=== PATIENT | male | born 1980 | race American Indian/Alaskan Native ===

== ENCOUNTER 2017-03-23 04:30 | Emergency (ER) | payer OTHER ==
[2017-03-23 04:45] VITALS: RESP 16; TEMP 98
--- NOTE | 2017-03-23 04:59 | ED PDOC ---
HPI: Chest Pain Time Seen by Provider: 03/23/17 04:48 Chief Complaint (Nursing): Chest Pain Chief Complaint (Provider): chest pain History Per: Patient History/Exam Limitations: no limitations Onset/Duration Of Symptoms: Hrs Current Symptoms Are (Timing): Still Present Additional Complaint(s): 36yo male with PMHx including asthma presents to the ED with c/o atraumatic non- radiating left sided chest pain since 0230 this morning. Patient reports pain is worse with deep inspiration and touch. Denies fever, cough, n/v, SOB, leg pain, hx of DVT or PE, palpitations, drug use, smoking. Past Medical History Reviewed: Historical Data, Nursing Documentation, Vital Signs Vital Signs: Last Vital Signs Temp 98.0 F 03/23/17 04:44 Pulse 65 03/23/17 05:25 Resp 16 03/23/17 04:44 BP 147/98 H 03/23/17 04:44 Pulse Ox 98 03/23/17 05:25 - Medical History PMH: Asthma - Surgical History Surgical History: Hernia Repair (left ) - Family History Family History: States: No Known Family Hx - Social History Current smoker - smoking cessation education provided: No Drugs: Denies - Home Medications Home Medications: Ambulatory Orders Medication Instructions Recorded No Known Home Med 03/23/17 - Allergies Allergies/Adverse Reactions: Allergies Allergy/AdvReac Type Severity Reaction Status Date / Time No Known Allergies Allergy Verified 01/29/16 00:12 Review of Systems ROS Statement: Except As Marked, All Systems Reviewed And Found Negative Constitutional: Negative for: Fever Cardiovascular: Positive for: Chest Pain (left sided ). Negative for: Palpitations Respiratory: Negative for: Cough, Shortness of Breath Gastrointestinal: Negative for: Nausea, Vomiting Musculoskeletal: Negative for: Leg Pain Physical Exam - Reviewed Nursing Documentation Reviewed: Yes Vital Signs Reviewed: Yes - Physical Exam Appears: Positive for: Well, No Acute Distress Head Exam: Positive for: ATRAUMATIC, NORMAL INSPECTION, NORMOCEPHALIC Skin: Positive for: Normal Color, Warm, Dry Eye Exam: Positive for: Normal appearance, EOMI, PERRL ENT: Positive for: Normal ENT Inspection Neck: Positive for: Normal, Painless ROM, Supple Cardiovascular/Chest: Positive for: Regular Rate, Rhythm, Other (left sided anterior chest wall tenderness ). Negative for: Murmur, Tachycardia Respiratory: Positive for: Normal Breath Sounds. Negative for: Wheezing, Respiratory Distress Gastrointestinal/Abdominal: Positive for: Normal Exam, Bowel Sounds, Soft. Negative for: Tenderness Back: Positive for: Normal Inspection. Negative for: L CVA Tenderness, R CVA Tenderness Extremity: Positive for: Normal ROM. Negative for: Deformity, Swelling Neurologic/Psych: Positive for: Alert, Oriented. Negative for: Motor/Sensory Deficits - Laboratory Results Result Diagrams: 03/23/17 05:00 - ECG ECG: Positive for: Interpreted By Me, Viewed By Me ECG Rhythm: Positive for: Sinus Rhythm (NSR at 65 bpm, no ST or T wave changes ) Rate: 65 O2 Sat by Pulse Oximetry: 98 Pulse Ox Interpretation: Normal (RA) - Radiology X-Ray: Interpreted by Me (CXR) X-Ray Interpretation: No Acute Disease Medical Decision Making Medical Decision Makin: Impression: atraumatic non-radiating left sided chest pain Plan: Labs CXR EKG IVF, Aspirin 324mg PO reassess Scribe Attestation: Documented by Cresencio Maxwell acting as a scribe for Nuan Allison PA-C. Provider Scribe Attestation: All medical record entries made by the Scribe were at my direction and personally dictated by me. I have reviewed the chart and agree that the record accurately reflects my personal performance of the history, physical exam, medical decision making, and the department course for this patient. I have also personally directed, reviewed, and agree with the discharge instructions and disposition. Disposition - Clinical Impression Clinical Impression: Chest pain - Patient ED Disposition Is Patient to be Admitted: Transfer of Care (Signed out to Dr. Scott pending lab results.) - Disposition Disposition Time: 06:03 Condition: STABLE
[2017-03-23 05:09] LABS: BASO # 0.1 K/uL (0.0-0.2); BASO % 1.2 % (0.0-2.0); EOS # 0.3 K/uL (0.0-0.7); EOS % 3.6 % (0.0-4.0); HEMATOCRIT 42.4 % (35.0-51.0); LYMPH # 2.4 K/uL (1.0-4.3); LYMPH % 30.4 % (20.0-40.0); MEAN CELL VOLUME 67.9 fl (80.0-94.0); MEAN CORPUSCULAR HEMOGLOBIN 21.4 pg (27.0-31.0); MEAN CORPUSCULAR HGB CONC 31.5 g/dL (33.0-37.0); MEAN PLATELET VOLUME 8.4 fl (7.2-11.7); MONO # 0.9 K/uL (0.0-0.8); MONO % 11.1 % (0.0-10.0); NEUT # 4.3 K/uL (1.8-7.0); NEUT % 53.7 % (50.0-75.0); NRBC % 0.1 % (0.0-0.0); RED CELL DISTRIBUTION WIDTH 15.5 % (11.5-14.5)
[2017-03-23 05:16] LABS: ALKALINE PHOSPHATASE 76 U/L (38-126); ALT/SGPT 33 U/L (21-72); AST/SGOT 42 U/L (17-59); BILIRUBIN,TOTAL 0.8 mg/dl (0.2-1.3); BLOOD UREA NITROGEN 18 mg/dl (9-20); CALCIUM 9.4 mg/dL (8.4-10.2); CARBON DIOXIDE 28 mmol/L (22-30); CHLORIDE 105 mmol/L (98-107); GFR AFRICAN-AMERICAN > 60; GLUCOSE,RANDOM 101 mg/dL (75-110); POTASSIUM 4.3 MMOL/L (3.6-5.0); SODIUM 145 mmol/l (132-148); TOTAL PROTEIN 7.7 G/DL (6.3-8.2)
--- NOTE | 2017-03-23 06:07 | ED PDOC ---
- Laboratory Results Result Diagrams: 03/23/17 05:00 03/23/17 05:00 - ECG O2 Sat by Pulse Oximetry: 98 Medical Decision Making Medical Decision Making: Patient s/o from Piedad Allison PA-C at 0600 pending labs and re-eval. 0637: Labs reviewed, WNL. Patient stable for d/c. Advised to f/u w/ PCP in 1-2 days for cardiology referral for workup and return to ED with any worsening or concerning symptoms. Scribe Attestation: Documented by Cresencio Maxwell acting as a scribe for John Scott MD. Provider Scribe Attestation: All medical record entries made by the Scribe were at my direction and personally dictated by me. I have reviewed the chart and agree that the record accurately reflects my personal performance of the history, physical exam, medical decision making, and the department course for this patient. I have also personally directed, reviewed, and agree with the discharge instructions and disposition. Disposition Counseled Patient/Family Regarding: Studies Performed, Diagnosis, Need For Followup - Clinical Impression Clinical Impression: Chest pain - POA Present On Arrival: None - Disposition Referrals: Jairo Wade MD [Primary Care Provider] - Disposition: Routine/Home Disposition Time: 06:37 Condition: IMPROVED Additional Instructions: follow up with your primary doctor in 1-2 days return to the ED with any worsening or concerning symptoms Instructions: Chest Pain (ED), Thoracic Pain (ED) Forms: [facility] ED School/Work Excuse
[2017-03-23 06:59] VITALS: BP 132/84; PULSE 82
--- NOTE | 2017-03-23 09:05 | RAD ---
HISTORY: chest pain COMPARISON: 01/29/2016. TECHNIQUE: Chest PA and lateral FINDINGS: LUNGS: No active pulmonary disease. PLEURA: No significant pleural effusion identified. No pneumothorax apparent. CARDIOVASCULAR: Normal. OSSEOUS STRUCTURES: No significant abnormalities. VISUALIZED UPPER ABDOMEN: Normal. OTHER FINDINGS: None. IMPRESSION: No active disease. No significant interval change compared to the prior examination(s).
[2017-03-24 11:11] VITALS: O2SAT 98
== END 2017-03-23 06:59 | disposition home or self-care (01) ==
LOC: H.ER 04:30
DX: J45.909 Unspecified asthma, uncomplicated (principal); R07.9 Chest pain, unspecified

== ENCOUNTER 2017-12-28 03:19 | Emergency (ER) | payer OTHER ==
[2017-12-28 03:29] VITALS: BMI 42.7
[2017-12-28 03:33] VITALS: BP 143/85; PULSE 74; RESP 16; TEMP 98.6; O2SAT 100
--- NOTE | 2017-12-28 03:52 | ED PDOC ---
HPI: Back Time Seen by Provider: 12/28/17 03:47 Chief Complaint (Nursing): Back Pain Chief Complaint (Provider): back pain, left leg pain History Per: Patient Additional Complaint(s): 37 year old male presents with pain to lower back that radiates to left leg starting yesterday. Patient denies any trauma or injury. He denies any associated bowel or bladder dysfunction. Patient took Tylenol earlier and this did not help his pain. Patient rates current pain as an 8 out of 10. PMD: Dr. Jairo Sorensen Past Medical History Reviewed: Historical Data, Nursing Documentation, Vital Signs Vital Signs: Last Vital Signs Temp 98.6 F 12/28/17 03:29 Pulse 74 12/28/17 03:29 Resp 16 12/28/17 03:29 BP 143/85 12/28/17 03:29 Pulse Ox 100 12/28/17 03:29 - Medical History PMH: Asthma - Surgical History Surgical History: Hernia Repair (left inguinal) - Family History Family History: States: No Known Family Hx - Living Arrangements Living Arrangements: With Friends/Others - Social History Current smoker - smoking cessation education provided: No Alcohol: None Drugs: Denies - Home Medications Home Medications: Ambulatory Orders Medication Instructions Recorded Cyclobenzaprine [Cyclobenzaprine 10 mg PO TID PRN #20 tab 12/28/17 HCl] Naproxen [Naprosyn] 500 mg PO BID #20 tab 12/28/17 Prednisone 50 mg PO DAILY #5 tablet 12/28/17 - Allergies Allergies/Adverse Reactions: Allergies Allergy/AdvReac Type Severity Reaction Status Date / Time No Known Allergies Allergy Verified 12/28/17 03:29 Review of Systems ROS Statement: Except As Marked, All Systems Reviewed And Found Negative Genitourinary Male: Negative for: Dysuria, Frequency, Incontinence, Hematuria Musculoskeletal: Positive for: Back Pain, Leg Pain Physical Exam - Reviewed Nursing Documentation Reviewed: Yes Vital Signs Reviewed: Yes - Physical Exam Appears: Positive for: Well, Non-toxic, No Acute Distress Skin: Negative for: Rash Eye Exam: Positive for: Normal appearance Cardiovascular/Chest: Positive for: Regular Rate, Rhythm Respiratory: Positive for: Normal Breath Sounds Back: Positive for: Vertebral Tenderness (Tenderness to lower lumbar region with palpable muscle spasm), Other (Straight leg raise is positive on left leg at 30, patient is able to heel and toe walk) Neurologic/Psych: Positive for: Alert, Oriented, Gait (steady) - ECG O2 Sat by Pulse Oximetry: 100 Pulse Ox Interpretation: Normal - Other Rad L/S Spine X-ray X-Ray: Interpreted by Me, Viewed By Me X-Ray Interpretation: no fx, no dis Medical Decision Making Medical Decision Makin-year-old male with back pain and sciatica Plan: IM toradol PO flexeril PO prednisone L/S Spine x-ray Patient reports mild improvement of pain after meds given. Prescriptions provided for prednisone, Naprosyn and Flexeril. Patient was advised to follow up with orthopedist or primary doctor for further evaluation. Disposition - Clinical Impression Clinical Impression: Back pain with sciatica - Patient ED Disposition Is Patient to be Admitted: No Counseled Patient/Family Regarding: Studies Performed, Diagnosis, Need For Followup, Rx Given - Disposition Referrals: Jairo Wade MD [Primary Care Provider] - Kallie Orozco MD [Staff Provider] - Disposition: Routine/Home Disposition Time: 05:10 Condition: IMPROVED Additional Instructions: Take meds as directed. Avoid heavy lifting and rest as much as possible. Follow up with primary care doctor or with orthopedist for further evaluation. Prescriptions: Cyclobenzaprine [Cyclobenzaprine HCl] 10 mg PO TID PRN #20 tab PRN Reason: Muscle Spasm Naproxen [Naprosyn] 500 mg PO BID #20 tab Prednisone 50 mg PO DAILY #5 tablet Instructions: Back Pain (ED), Back Exercises (ED), Sciatica (ED) Forms: [employer] [facility] (S[place]ankan), [facility] ED School/Work Excuse
--- NOTE | 2017-12-28 14:37 | RAD ---
PROCEDURE: Radiographs of the Lumbar Spine. HISTORY: Back pain radiating left lower extremity. No history of trauma provided. COMPARISON: No prior. FINDINGS: BONES: Normal alignment. No listhesis. No fracture. DISC SPACES: Unremarkable. OTHER FINDINGS: None. IMPRESSION: Unremarkable radiographs of the lumbar spine. Concordant results with the preliminary interpretation rendered by the emergency department physician procedure.
== END 2017-12-28 05:17 | disposition home or self-care (01) ==
LOC: H.ER 03:19
DX: M54.32 Sciatica, left side (principal)
CPT/HCPCS: 72100; 96372; 99281; J1885

== ENCOUNTER 2018-08-27 21:28 | Emergency (ER) | payer OTHER ==
[2018-08-27 21:28] VITALS: BMI 41.9
--- NOTE | 2018-08-27 23:04 | ED PDOC ---
HPI: SOB/CHF/COPD Time Seen by Provider: 08/27/18 22:19 Chief Complaint (Nursing): Shortness Of Breath Chief Complaint (Provider): Cough, b/l leg pain History Per: Patient History/Exam Limitations: no limitations Onset/Duration Of Symptoms: Days (x3 weeks ago ) Quality: Other (Constant) Exacerbating Factor(s): Other (standing or walking around ) Associated Symptoms: Leg/Calf Pain (both lower leg pain ) Additional Complaint(s): Victor M Centeno is a 37 year old male with a past medical history of asthma, who presents to the emergency department complaining of chills and productive cough with yellow-clear phlegm onset for x1 week. Patient also reports constant bilateral lower leg pain. He was seen here x3 weeks ago and was diagnosed with Pneumonia. He took Advil with mild relief. He denies having fever, leg swelling or any other medical complaints. PMD: Dr. Jairo Wade Past Medical History Reviewed: Historical Data, Nursing Documentation, Vital Signs Vital Signs: Last Vital Signs Temp 98.4 F 08/27/18 21:58 Pulse 61 08/27/18 21:58 Resp 18 08/27/18 21:58 BP 135/86 08/27/18 21:58 Pulse Ox 100 08/27/18 21:58 - Medical History PMH: Asthma Other PMH: - Surgical History Surgical History: Hernia Repair (left inguinal) - Family History Family History: States: Unknown Family Hx - Social History Current smoker - smoking cessation education provided: No Alcohol: None Drugs: Denies - Home Medications Home Medications: Ambulatory Orders Medication Instructions Recorded Cyclobenzaprine [Cyclobenzaprine 10 mg PO TID PRN #20 tab 12/28/17 HCl] Naproxen [Naprosyn] 500 mg PO BID #20 tab 12/28/17 Prednisone 50 mg PO DAILY #5 tablet 12/28/17 Ondansetron ODT [Zofran ODT] 4 mg PO Q6 PRN #10 odt 08/05/18 levoFLOXacin [Levaquin] 750 mg PO DAILY #10 tab 08/05/18 - Allergies Allergies/Adverse Reactions: Allergies Allergy/AdvReac Type Severity Reaction Status Date / Time No Known Allergies Allergy Verified 12/28/17 03:29 Review of Systems ROS Statement: Except As Marked, All Systems Reviewed And Found Negative Constitutional: Positive for: Chills. Negative for: Fever Respiratory: Positive for: Cough, Sputum (yellow and clear phlegm) Musculoskeletal: Positive for: Leg Pain (Lower extremity pain) Physical Exam - Reviewed Nursing Documentation Reviewed: Yes Vital Signs Reviewed: Yes - Physical Exam Appears: Positive for: Well, No Acute Distress Head Exam: Positive for: ATRAUMATIC, NORMOCEPHALIC Skin: Positive for: Normal Color, Warm, Dry Eye Exam: Positive for: Normal appearance, EOMI, PERRL Neck: Positive for: Normal, Painless ROM, Supple Cardiovascular/Chest: Positive for: Regular Rate, Rhythm. Negative for: Murmur Respiratory: Positive for: Normal Breath Sounds. Negative for: Respiratory Distress (Able to speak in full sentences ) Gastrointestinal/Abdominal: Positive for: Normal Exam, Soft. Negative for: Tenderness Back: Positive for: Normal Inspection. Negative for: L CVA Tenderness, R CVA Tenderness Extremity: Positive for: Normal ROM (upper and lower extremities ). Negative for: Tenderness, Calf Tenderness, Deformity, Swelling Neurologic/Psych: Positive for: Alert, Oriented, Gait (steady ). Negative for: Motor/Sensory Deficits - Laboratory Results Result Diagrams: 08/27/18 23:15 08/27/18 23:15 - ECG O2 Sat by Pulse Oximetry: 100 (RA) Pulse Ox Interpretation: Normal - Radiology X-Ray: Interpreted by Ks X-Ray Interpretation: No Acute Disease Medical Decision Making Medical Decision Making: Time: 22:19 Initial Impression: Initial Plan: --CMP --CBC with differential --PTT --PT --CXR 2 views PA/LAT [RAD] --Duplex Lower Extremity Vein BILAT [US] Scribe Attestation: Documented by Navarro Baker & Jorge Luis Becerra, acting as a scribe for Anne Nolasco MD. Provider Scribe Attestation: All medical record entries made by the Scribe were at my direction and pe rsonally dictated by me. I have reviewed the chart and agree that the record accurately reflects my personal performance of the history, physical exam, medical decision making, and the department course for this patient. I have also personally directed, reviewed, and agree with the discharge instructions and disposition. Disposition - Disposition Forms: [employer] ([place]ayan)
[2018-08-27 23:34] LABS: INR 1.1
[2018-08-27 23:36] LABS: BASO # 0.1 K/uL (0.0-0.2); BASO % 1.2 % (0.0-2.0); EOS # 0.2 K/uL (0.0-0.7); EOS % 2.6 % (0.0-4.0); HEMOGLOBIN 13.5 g/dL (12.0-18.0); LYMPH # 2.5 K/uL (1.0-4.3); MEAN CORPUSCULAR HEMOGLOBIN 21.8 pg (27.0-31.0); MEAN CORPUSCULAR HGB CONC 32.1 g/dL (33.0-37.0); MEAN PLATELET VOLUME 8.6 fl (7.2-11.7); MONO # 0.8 K/uL (0.0-0.8); MONO % 10.2 % (0.0-10.0); NEUT # 4.2 K/uL (1.8-7.0); PARTIAL THROMBOPLASTIN TIME 36.5 Seconds (25.6-37.1); RBC 6.17 Mil/uL (4.40-5.90); RED CELL DISTRIBUTION WIDTH 15.3 % (11.5-14.5); WHITE BLOOD COUNT 7.7 K/uL (4.8-10.8)
[2018-08-27 23:40] LABS: ALT/SGPT 38 U/L (21-72); AST/SGOT 30 U/L (17-59); BLOOD UREA NITROGEN 21 mg/dl (9-20); CALCIUM 9.5 mg/dL (8.4-10.2); GFR NON-AFRICAN AMERICAN > 60
--- NOTE | 2018-08-28 02:21 | ED PDOC ---
- Laboratory Results Result Diagrams: 08/27/18 23:15 08/27/18 23:15 - ECG O2 Sat by Pulse Oximetry: 100 (RA) Pulse Ox Interpretation: Normal Medical Decision Making Medical Decision Makin Patient was signed over to me by Dr. Nolasco pending studies 200 U/S: Negative Labs reviewed: negative Patient resting very comfortably, appearing very well Informed of results, will treat for inflammatory airway process Advised patient to followup with Dr. Jairo Sorensen Patient requesting work note Disposition - Clinical Impression Clinical Impression: Cough - POA Present On Arrival: None - Disposition Referrals: Jairo Wade MD [Staff Provider] - Disposition: Routine/Home Disposition Time: 02:20 Condition: GOOD Prescriptions: Benzonatate [Tessalon Perle] 100 mg PO TID #20 capsule predniSONE [predniSONE Tab] 60 mg PO DAILY #9 tab Instructions: Cough in Adults Forms: [facility] ([place]ankan)
[2018-08-28 03:13] VITALS: BP 131/90; PULSE 88; RESP 22; TEMP 98.1; O2SAT 99
--- NOTE | 2018-08-28 09:51 | RAD ---
Date of service: 08/27/2018 HISTORY: Cough COMPARISON: Chest radiograph dated 08/05/2018 TECHNIQUE: Chest PA and lateral FINDINGS: LUNGS: No active pulmonary disease. PLEURA: No significant pleural effusion identified. No pneumothorax apparent. CARDIOVASCULAR: Normal. OSSEOUS STRUCTURES: No significant abnormalities. VISUALIZED UPPER ABDOMEN: Normal. OTHER FINDINGS: None. IMPRESSION: No active disease.
--- NOTE | 2018-08-31 10:17 | US ---
Date of service: 08/28/2018 PROCEDURE: Bilateral lower extremity venous duplex Doppler. HISTORY: Bilateral calf pain COMPARISON: None available. TECHNIQUE: Bilateral common femoral, superficial femoral, popliteal and posterior tibial veins were evaluated. Flow was assessed with color Doppler, compressibility, assessment of phasic flow and augmentation response. FINDINGS: COMMON FEMORAL VEIN: Right CFV: Unremarkable. Left CFV: Unremarkable. SUPERFICIAL FEMORAL VEIN: Right SFV: Unremarkable. Left SFV: Unremarkable. POPLITEAL VEIN: Right Popliteal: Unremarkable. Left Popliteal: Unremarkable. POSTERIOR TIBIAL VEIN: Right PTV: Unremarkable. Left PTV: Unremarkable. OTHER FINDINGS: None. IMPRESSION: No evidence of deep venous thrombosis. Concordant results (preliminary interpretation) provided by JM CEBALLOS. Procedure Completed: 01:06 Preliminary Report: Dictated and Authenticated: 01:27. Final Interpretation: 10:16
== END 2018-08-28 03:13 | disposition home or self-care (01) ==
LOC: H.ER 21:28
DX: R05 Cough (principal); R06.02 Shortness of breath; R60.0 Localized edema

== ENCOUNTER 2019-03-28 20:08 | Emergency (ER) | payer OTHER ==
[2019-03-28 20:09] VITALS: BMI 41.9
[2019-03-28 21:16] VITALS: O2SAT 99
[2019-03-28] MEDS ORDERED: Ciprofloxacin 400mg/200ml D5W 400 MG/200 ML BAG IVPB STA (22:22)
[2019-03-28] MEDS ORDERED: metroNIDAZOLE 500mg/100ml NS 100 ML IVPB STA (22:23)
[2019-03-28] MEDS ORDERED: Sodium Chloride 0.9% 1,000 ML IV STA (22:23)
--- NOTE | 2019-03-28 22:25 | ED PDOC ---
HPI: General Adult Time Seen by Provider: 03/28/19 22:24 Chief Complaint (Nursing): Abdominal Pain Chief Complaint (Provider): abdominal pain History Per: Patient (38 y/o male h/o Asthma here with intermittent abdominal pain now more persistently x 2-3 days LLQ. Feels as if pain radiates to testicles. Denies any dysuria/diarrhea/vomiting/fever. Has h/o hernia repair.) Past Medical History Reviewed: Historical Data, Nursing Documentation, Vital Signs Vital Signs: Last Vital Signs Temp 98.6 F 03/28/19 21:13 Pulse 77 03/28/19 21:13 Resp 16 03/28/19 21:13 BP 115/76 03/28/19 21:13 Pulse Ox 99 03/28/19 21:13 - Medical History PMH: Asthma - Surgical History Surgical History: Hernia Repair (left inguinal) - Family History Family History: States: Unknown Family Hx - Home Medications Home Medications: Ambulatory Orders Medication Instructions Recorded Cyclobenzaprine [Cyclobenzaprine 10 mg PO TID PRN #20 tab 12/28/17 HCl] Naproxen [Naprosyn] 500 mg PO BID #20 tab 12/28/17 Prednisone 50 mg PO DAILY #5 tablet 12/28/17 Ondansetron ODT [Zofran ODT] 4 mg PO Q6 PRN #10 odt 08/05/18 levoFLOXacin [Levaquin] 750 mg PO DAILY #10 tab 08/05/18 Benzonatate [Tessalon Perle] 100 mg PO TID #20 capsule 08/28/18 predniSONE [predniSONE Tab] 60 mg PO DAILY #9 tab 08/28/18 Ciprofloxacin HCl [Cipro] 500 mg PO BID #14 tablet 03/29/19 Metronidazole [Flagyl] 500 mg PO TID #21 tablet 03/29/19 Ondansetron ODT [Zofran ODT] 4 mg PO Q8 PRN #10 odt 03/29/19 Oxycodone HCl/Acetaminophen 1 each PO Q6 PRN #10 tablet 03/29/19 [Endocet 2.5-325 mg Tablet] - Allergies Allergies/Adverse Reactions: Allergies Allergy/AdvReac Type Severity Reaction Status Date / Time No Known Allergies Allergy Verified 03/28/19 21:13 Review of Systems ROS Statement: Except As Marked, All Systems Reviewed And Found Negative Gastrointestinal: Positive for: Abdominal Pain Physical Exam - Reviewed Nursing Documentation Reviewed: Yes Vital Signs Reviewed: Yes - Physical Exam Appears: Positive for: Well, Non-toxic, No Acute Distress Head Exam: Positive for: ATRAUMATIC, NORMAL INSPECTION, NORMOCEPHALIC Skin: Positive for: Normal Color, Warm, DRY Eye Exam: Positive for: EOMI, Normal appearance, PERRL ENT: Positive for: Normal ENT Inspection Neck: Positive for: Normal, Painless ROM Cardiovascular/Chest: Positive for: Regular Rate, Rhythm Respiratory: Positive for: CNT, Normal Breath Sounds Gastrointestinal/Abdominal: Positive for: Normal Exam, Soft Back: Positive for: Normal Inspection Extremity: Positive for: Normal ROM, Tenderness (LLQ tenderness) Neurological/Psych: Positive for: Awake, Alert, Normal Tone - Laboratory Results Result Diagrams: 03/28/19 23:05 03/28/19 23:05 - ECG O2 Sat by Pulse Oximetry: 99 - Progress ED Course And Treament: CIPRO 400 MG IV X 1 DOSE FLAGYL 500 MG IV X 1 DOSE NS 1 LITER 500 ML PER HOUR X [address] ABD/PELVIS: MILD CHANGES OF UNCOMPLICATED PROXIMAL ACUTE SIGMOID DIVERTICULITIS WITHOUT PERFORATION OR ABSCESS FORMATION. D/W PATIENT TO RETURN TO ED FOR INCREASING PAIN/FEVER/VOMITING. ADVISED F/U W ITH DR. MOULTON GI AND IF UNABLE TO DO SO SOON--WITH PMD IN 1-2 DAYS. Medical Decision Making Medical Decision Makin:01 CT abd and pelvis with contrast read and reviewed by radiologist COMMENTS: Fat containing umbilical hernia without incarceration. Mild acute diverticulitis of the proximal sigmoid colon without perforation or abscess formation. Mild fatty liver infiltration. There is no intra or extrahepatic biliary ductal dilatation. The spleen is normal. The gallbladder is within normal limits. The pancreas is of normal contour and attenuation characteristics. There is no evidence of adrenal mass. Both kidneys demonstrate prompt and equal nephrograms. The kidneys are normal in size, shape and configuration. There is no evidence of renal or ureteral mass. No renal or ureteral calculi are identified. There is no hydroureter or hydronephrosis. No evidence for appendicitis. There is no bowel wall thickening. No evidence for small or large bowel obstruction. There is no evidence of abdominal ascites or lymphadenopathy. There is no evidence of intrinsic or extrinsic bladder mass. There is no pelvic ascites or lymphadenopathy. Images of the lung bases show no evidence of pleural or parenchymal mass. There are no pleural effusions. The bony structures are free of lytic or blastic lesions. IMPRESSION: Mild changes of uncomplicated proximal acute sigmoid diverticulitis without perforation or abscess formation. Disposition - Clinical Impression Clinical Impression: Diverticulitis - Patient ED Disposition Is Patient to be Admitted: No - Disposition Referrals: Scott Moulton MD [Staff Provider] - Disposition: Routine/Home Disposition Time: 01:38 Condition: FAIR Prescriptions: Ciprofloxacin HCl [Cipro] 500 mg PO BID #14 tablet Metronidazole [Flagyl] 500 mg PO TID #21 tablet Ondansetron ODT [Zofran ODT] 4 mg PO Q8 PRN #10 odt PRN Reason: Nausea/Vomiting Oxycodone HCl/Acetaminophen [Endocet 2.5-325 mg Tablet] 1 each PO Q6 PRN #10 tablet PRN Reason: Pain, Severe (8-10) Instructions: Low Fiber Diet, Diverticulitis (DC) Forms: [facility] ED School/Work Excuse
[2019-03-28] MEDS ORDERED: Ciprofloxacin 400mg/200ml D5W 400 MG/200 ML BAG IVPB ONE (23:14)
[2019-03-28 23:23] LABS: VENOUS BLOOD GAS PCO2 63 mmHg (40-60); VENOUS BLOOD GAS PO2 16 mm/Hg (30-55); VENOUS BLOOD PH 7.29 (7.32-7.43)
[2019-03-28 23:26] LABS: BASO # 0.1 K/uL (0.0-0.2); BASO % 0.8 % (0.0-2.0); EOS # 0.2 K/uL (0.0-0.7); EOS % 2.6 % (0.0-4.0); LYMPH # 2.2 K/uL (1.0-4.3); LYMPH % 30.3 % (20.0-40.0); MEAN CELL VOLUME 69.2 fl (80.0-94.0); MEAN CORPUSCULAR HGB CONC 31.8 g/dL (33.0-37.0); MEAN PLATELET VOLUME 8.3 fl (7.2-11.7); MONO # 0.8 K/uL (0.0-0.8); MONO % 10.7 % (0.0-10.0); NEUT % 55.6 % (50.0-75.0); NRBC % 0.2 % (0.0-0.0); RBC 6.37 Mil/uL (4.40-5.90); WHITE BLOOD COUNT 7.2 K/uL (4.8-10.8)
[2019-03-28 23:30] LABS: URINE BACTERIA RARE (<OCC); URINE BILIRUBIN NEGATIVE (NEGATIVE); URINE BLOOD NEGATIVE (NEGATIVE); URINE CLARITY CLEAR (Clear); URINE COLOR YELLOW (YELLOW); URINE GLUCOSE (UA) NEG (NEGATIVE); URINE LEUKOCYTE ESTERASE NEG Leu/uL (Negative); URINE PROTEIN NEGATIVE (NEGATIVE); URINE UROBILINOGEN 0.2-1.0 mg/dL (0.2-1.0)
[2019-03-28 23:35] LABS: ALBUMIN 4.5 g/dL (3.5-5.0); BLOOD UREA NITROGEN 18 mg/dl (9-20); CALCIUM 9.6 mg/dL (8.4-10.2); GFR NON-AFRICAN AMERICAN > 60
[2019-03-28 23:36] LABS: ALB/GLOB RATIO 1.1 (1.0-2.1); ALT/SGPT 32 U/L (21-72); AST/SGOT 31 U/L (17-59); LIPASE 58 U/L (23-300)
[2019-03-28] MEDS ORDERED: Iohexol 300 100 ML IJ ONE (23:43)
[2019-03-28] MEDS ORDERED: Sodium Chloride 0.9% 50 ML IV ONE (23:44)
[2019-03-29] MEDS ORDERED: metroNIDAZOLE 500mg/100ml NS 100 ML IVPB ONE (00:38)
[2019-03-29 03:18] VITALS: BP 125/81; PULSE 82; RESP 17; TEMP 98.4
--- NOTE | 2019-03-29 11:36 | CT ---
Date of service: 03/28/2019 PROCEDURE: CT Abdomen and Pelvis with contrast HISTORY: Abdominal pain, diverticulitis suspected. COMPARISON: 08/05/2018. CT abdomen and pelvis. TECHNIQUE: Intravenous contrast dose: 90 cc Omnipaque 300. Radiation dose: Total exam DLP = 891.15 mGy-cm. This CT exam was performed using one or more of the following dose reduction techniques: Automated exposure control, adjustment of the mA and/or kV according to patient size, and/or use of iterative reconstruction technique. FINDINGS: LOWER THORAX: Unremarkable. LIVER: Hepatic steatosis. No focal masses. No intrahepatic bile duct dilatation or perihepatic ascites. GALLBLADDER AND BILE DUCTS: Unremarkable. PANCREAS: Unremarkable. No gross lesion or ductal dilatation. SPLEEN: Unremarkable. ADRENALS: Unremarkable. No mass. KIDNEYS AND URETERS: Unremarkable. No hydronephrosis. No solid mass. VASCULATURE: Unremarkable. No aortic aneurysm. No atherosclerotic calcification or mural plaque present. BOWEL: Acute inflammatory changes limited to a short segment of the sigmoid colon at the site of known diverticular disease. No free air, loculated air/fluid or drainable collection. APPENDIX: Normal appendix. PERITONEUM: Unremarkable. No free fluid. No free air. LYMPH NODES: Unremarkable. No enlarged lymph nodes. BLADDER: Unremarkable. REPRODUCTIVE: Unremarkable. BONES: No acute fracture. OTHER FINDINGS: None. IMPRESSION: Mild/acute sigmoid diverticulitis. This is uncomplicated without evidence of free, loculated air or fluid or drainable collection. Additional benign and/or incidental findings described above. Concordant results (preliminary interpretation) provided by [employer]. Procedure Completed: 23:57. Preliminary Report: Interpreted and electronically signed: 01:01. Final Interpretation: 11:33.
== END 2019-03-29 02:43 | disposition home or self-care (01) ==
LOC: H.ER 20:08
DX: K57.32 Diverticulitis of large intestine without perforation or abscess without bleeding (principal); J45.909 Unspecified asthma, uncomplicated; Z79.899 Other long term (current) drug therapy
CPT/HCPCS: 74177; 80053; 81003; 82803; 83690; 85025; 87040; 87086; 96365; 96367; 99285; J0744; J7030; Q9967